=== PATIENT | male | born 1955 | race Caucasian/White ===

== ENCOUNTER 2024-03-19 10:31 | Day surgery (SDC) | payer OTHER, MEDICARE ==
[~2024-03-19] VITALS: Ht 182.9 cm; Wt 166.5 kg
[~2024-03-19 10:31] MED LIST: ACET-897 PO; AZIT-12 PO; CYAN2500 PO; FEXO-157 PO; FURO40TA2 PO; FURO80TA2 PO; INDO50CA91 PO; INSULANT SC; LR 1,000 ML IV SCH; METO1TAB87 PO; NOVOINJ SC; PANT40TA29 PO; PROA1AER2 INH; ROSU20TA61 PO; SENO8.6T5 PO; SUCR1TAB56 PO; TIOT18INH INH; ZYLO100T2 PO
[2024-03-19] MEDS: ATROPINE SULFATE 1% OPHTH SOLN 2ML BTL OD SCH (12:30)
[2024-03-19] MEDS: TETRACAINE 0.5% OPHTH SOLN 4ML OD SCH (12:30)
[2024-03-19] MEDS: PHENYLEPHRINE 2.5% OPHTH SOL 2ML OD SCH (12:30)
[2024-03-19] MEDS: FLURBIPROFEN 0.03% OPHTH SOLN 2.5 ML OD SCH (12:30)
[2024-03-19] MEDS ORDERED: dexmedeTOMIDine (4MCG/ML)200MCG/50ML BTL (PRECEDEX) As Ordered ONE (13:13)
[2024-03-19] MEDS ORDERED: MIDAZOLAM INJ 2MG/2ML VIAL As Ordered ONE (13:20)
[2024-03-19] MEDS ORDERED: LABETALOL 100MG/20ML VIAL As Ordered ONE (13:29)
[2024-03-19] MEDS: LIDOCAINE 1% SDV 5ML VIAL As Ordered ONE (13:41)
[2024-03-19] MEDS: CEFUROXIME 1MG/0.1ML INTRACAMERAL INJ As Ordered ONE (13:41)
[2024-03-19] MEDS ORDERED: ONDANSETRON 4MG 2ML VIAL IV PRN (14:05)
[2024-03-19 14:28] VITALS: BP 122/65; TEMP 96.5; O2SAT 95
== END 2024-03-19 14:49 | disposition home or self-care (01) ==
LOC: M SDC 10:31
PROVIDERS: ATTEND Ophthalmology
DX: H25.11 Age-related nuclear cataract, right eye (principal); E11.36 Type 2 diabetes mellitus with diabetic cataract; I13.0 Hypertensive heart and chronic kidney disease with heart failure and stage 1 through stage 4 chronic kidney disease, or unspecified chronic kidney disease; I50.9 Heart failure, unspecified; E78.00 Pure hypercholesterolemia, unspecified; N18.2 Chronic kidney disease, stage 2 (mild); E11.22 Type 2 diabetes mellitus with diabetic chronic kidney disease; E11.40 Type 2 diabetes mellitus with diabetic neuropathy, unspecified; Z79.899 Other long term (current) drug therapy; Z88.8 Allergy status to other drugs, medicaments and biological substances; Z79.4 Long term (current) use of insulin; J44.9 Chronic obstructive pulmonary disease, unspecified; G47.30 Sleep apnea, unspecified
CPT/HCPCS: 66984; J0697; J1920; J2250; V2632

== ENCOUNTER 2024-07-30 11:50 | Day surgery (SDC) | payer MEDICARE, OTHER ==
[~2024-07-30] VITALS: Ht 182.9 cm; Wt 166.0 kg
[~2024-07-30 11:50] MED LIST changes: +AMIL5TAB4 PO; -FEXO-157 PO; +FEXO-63 PO; -ROSU20TA61 PO; +ROSU20TA86 PO; +TREL1AER IN
[2024-07-30] MEDS ORDERED: fentaNYL 100 MCG/2 ML INJECTION As Ordered ONE (12:10)
[2024-07-30] MEDS: FLURBIPROFEN 0.03% OPHTH SOLN 2.5 ML OS SCH (13:52)
[2024-07-30] MEDS: TETRACAINE 0.5% OPHTH SOLN 4ML OS SCH (13:52)
[2024-07-30] MEDS: PHENYLEPHRINE 2.5% OPHTH SOL 2ML OS SCH (13:52)
[2024-07-30] MEDS: ATROPINE SULFATE 1% OPHTH SOLN 2ML BTL OS SCH (13:52)
[2024-07-30 13:56] VITALS: BP 131/81; TEMP 97.6; O2SAT 95
[2024-07-30] MEDS ORDERED: EPINEPHrine 1MG/10ML SYRINGE 1.5IN ONE (14:20)
[2024-07-30] MEDS ORDERED: SODIUM BICARBONATE 8.4% INJ 50ML SYRINGE ONE (14:20)
[2024-07-30] MEDS ORDERED: ATROPINE SULF 1MG/10ML SYRINGE ONE (14:20)
[2024-07-30] MEDS ORDERED: CALCIUM CHLORIDE 10% 1 GM/10 ML SYR ONE (14:20)
[2024-07-30] MEDS ORDERED: MIDAZOLAM INJ 2MG/2ML VIAL As Ordered ONE (15:14)
[2024-07-30] MEDS ORDERED: dexmedeTOMIDine (4MCG/ML)200MCG/50ML BTL (PRECEDEX) As Ordered ONE (15:14)
[2024-07-30] MEDS ORDERED: KETAMINE HCL 200MG/20ML VIAL As Ordered ONE (15:28)
[2024-07-30] MEDS: CEFUROXIME 1MG/0.1ML INTRACAMERAL INJ As Ordered ONE (16:02)
[2024-07-30] MEDS: LIDOCAINE 1% SDV 5ML VIAL As Ordered ONE (16:02)
[2024-07-30] MEDS ORDERED: propofoL 200 MG/20 ML VIAL As Ordered ONE (16:08)
[2024-07-30] MEDS ORDERED: flumazeniL 0.5MG/5ML VIAL As Ordered ONE (16:08)
== END 2024-07-30 16:48 | disposition expired ==
LOC: M SDC 11:50
PROVIDERS: ATTEND Ophthalmology
DX: I97.121 Postprocedural cardiac arrest following other surgery (principal); H25.12 Age-related nuclear cataract, left eye; J30.2 Other seasonal allergic rhinitis; Z88.8 Allergy status to other drugs, medicaments and biological substances; I10 Essential (primary) hypertension; E11.9 Type 2 diabetes mellitus without complications; J44.9 Chronic obstructive pulmonary disease, unspecified; Z99.81 Dependence on supplemental oxygen; G47.33 Obstructive sleep apnea (adult) (pediatric); Z79.51 Long term (current) use of inhaled steroids; E78.5 Hyperlipidemia, unspecified; M10.9 Gout, unspecified; K21.9 Gastro-esophageal reflux disease without esophagitis; Z86.73 Personal history of transient ischemic attack (TIA), and cerebral infarction without residual deficits; Z79.899 Other long term (current) drug therapy; Z79.4 Long term (current) use of insulin
CPT/HCPCS: 66984; J0171; J0461; J0697; J2250; J3010; V2632